=== PATIENT | male | born 2005 | race Caucasian/White ===

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

== ENCOUNTER 2025-02-20 18:37 | Observation (INO) | payer MEDICAID, SELFPAY ==
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
--- OUTSIDE RECORDS SUMMARY | 2021-08-22 01:24 | XMS_ITS | Continuity of Care Document ---
Author Organization [facility] Address [address] [id number][place] [address] Phone Care Team Providers Care Prop Setter Name Role Phone Care, Group Controller Unavailable Unavailable Allergies, Adverse Reactions, Alerts Substance [...] EACH ADD FLU VAC NO PRSV 4 SHEILA 6 Months+ 018 IMMUNIZATION ADMIN, EACH ADD [...] Diagnoses Date Provider Providers Copied on Encounter [facility], [id number]- [place], [place], [address], [place] tel:[phone] Family Medicine F1 No Information 2 Overlock Elastic Attacher. [address], [place], [address], [place]. tel:[phone] [facility], [id number] [id number]- [place], [place], [address], [place] tel:[phone] Pediatrics F1 Epistaxis 0 No Information OFFICE/OUTPA TIENT VISIT EST [facility], [id number]- [place], [place], [address], [place] tel:[phone] Pediatrics F1 elevated BP/noseblee ds (chief complaint)E ar pain (chief complaint) Right acute suppurative otitis mediaEpistaxi s 0 No Information [facility], [id number]- [facility], [place], [place], [address], [place] tel:[phone] Pediatrics F1 No Information 0 No Information [facility], [id number]- [facility], [place], [place], [address], [place] tel:[phone] Pediatrics F1 No Information 9 No Information [facility], [id number], [place], [place], [address], [place] tel:[phone] Pediatrics F1 No Information 9 No Information [facility], [id number] [facility], [place], [place], [address], [place] tel:[phone] Behavioral Health Integration Conduct disorder, unspecified 8 Zunilda Muñiz. [address], [place], [address], [place]. tel:[phone] OFFICE/OUTPA TIENT VISIT EST [facility], [id number], [place], [place], [address], [place] tel:[phone] Pediatrics F1 Med Check (chief complaint) ADHD 8 No Information [facility], [address] [id number] [facility], [place], [place], [address], [place] tel:[phone] Family Medicine F1 No Information 8 No Information [facility], [address] [id number] [facility], [place], [place], [address], [place] tel:[phone] Behavioral Health Integration Conduct disorder, unspecified 8 No Information [facility], [id number] [facility], [place], [place], [address], [place] tel:[phone] Behavioral Health Integration Other specified counseling 8 No Information OFFICE/OUTPA TIENT VISIT, EST [facility], [id number]- [facility], [place], [place], [address], [place] tel:[phone] Pediatrics F1 Follow Up of Concussion (chief complaint) Concussion with loss of consciousness , sequelaStrabi smus 8 No Information [facility], [address] [id number]- [facility], [place], [place], [address], [place] tel:[phone] Behavioral Health Integration Other specified counseling 8 No Information PREV VISIT, NEW, AGE 5-11 [facility], [address] [id number]- [facility], [place], [place], [address], [place] tel:[phone] Pediatrics F1 Well child (chief complaint)* 8-9 year well (chief complaint) Encntr for routine child health exam w/o abnormal findingsStrab ismusConduct disorder, unspecifiedOt her seasonal allergic rhinitisMild intermittent asthma, uncomplicated 8 No Information [facility], [address] [id number] [id number]- [facility], [place], [place], [address], [place] tel:[phone] Dental General LL Encounter for dental exam and cleaning w/o abnormal findings 8 No Information Family History Family Member Type Diagnosis Age At Onset Mother Problem (finding) Alive and well Father Problem (finding) Immunizations Vaccine Date Status Comments Flu Vaccine 3 years and older administere d Note: Parent/guardian advised to wait 10 mins while in clinic, pt had no notable adverse reactions. VIS:12/30/14 ; Source: New Immunization Record HPV (9-valent) administered Note: Parent/ guardian advised to wait 10 mins while in clinic, pt had no notable adverse reactions. VIS:04/26/16 ; Source: New Immunization Record HPV (9-valent) [...] Agency Payers Payer name Insurance type Covered republican ID Jen baires(s) M [employer] Plan CI [id number] M [employer] Comm Plan CI [id number] Social History Type Description Quantity Date Captured [...] Referrals: Referrals: Clinical Psychology - Pediatrics. Location: [facility]. Diagnostic testing Location: [facility]. Diagnostic testing Location: [facility]. Diagnostic testing Appointment date/timeframe: 09/12/2017 ordered Future Order: Lab Order PT/INR I n House ([id number]), Ordered on: Ordered Future Order: Lab Order PARTIAL THROMBOPLASTIN TIME, ACTIVATED ([id number]), Ordered on: Ordered Future Order: Lab Order von Will ramosd Comprehensive Panel ([id number]), Ordered on: Ordered History Of Present Illness [...] with pressure. Was seen at ED in [place] where labs were reportedly done (no records [...] dad when he was 4yo. Originally from [facility]. [facility] clinics, [facility] Moved here because mom got in trouble and needed to get away. Mom's was source of stress for Sher, they left him in [facility]. Has been here since Jan, mom is [...] is sleepy during the day. Goes to [employer]. Has friends. He is encouraged to eat [...] No Information Instructions Date Instruction Additional Infor mation Patient advised about exercise R elated to Right acute suppurative otitis media Dietary management e ducation, guidance, and counseling Related to Right acute suppurative otitis media Patient advised about exercise R elated to ADHD Dietary management e ducation, guidance, and counseling Related to ADHD Oral Health Discussed (11-14 yea rs) Related to Encntr for routine child health exam w/o abnormal findings Age appropriate safe ty discussed (11-14 years) Related to Encntr for routine child health exam w/o abnormal findings Age appropriate diet discussed (11-14 years) Related to Encntr for routine child health exam w/o abnormal findings Age appropriate anti cipatory guidance discussed (11-14 years) Related to Encntr for routine child health exam w/o abnormal findings Lifestyle education Related to D ental Examination Assessments Type Assessment Date No Information Patient Care Teams Name Effective Dates (start - stop) Status Members No Information
[2025-02-20 18:38] VITALS: BP 147/89; PULSE 93; RESP 17; TEMP 37; O2SAT 98; BMI 31.4
--- OUTSIDE RECORDS SUMMARY | 2025-02-20 18:49 | XMS_ITS | Encounter Summary ---
Author Organization 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 Nurses documentation noted. Review of systems, social history and chart review performed on health questionnaire. OBJECTIVE: HEENT: Head is normocephalic. Both TMs are erythematous and bulging. Posterior pharynx is erythematous. Clear drainage from nares. NECK: Supple. Thyroid is not palpated. No cervical lymphadenopathy is noted. HEART: Regular rate and rhythm with no murmur. LUNGS: Clear to auscultation bilaterally. ABDOMEN: Soft, rounded and nontender to palpation. Bowel sounds are present. EXTREMITIES: Without defect. ASSESSMENT: Upper respiratory infection, bilateral otitis media, pharyngitis. PLAN: Zithromax 100 mg in 5 ml, 1 tsp daily x5 days. Increase clear fluids. Tylenol and or Motrin for elevated temp and/or pain. Rondec DM syrup half tsp q.i.d. p.r.n. cough and congestion. Followup as needed. Hung Andrews RN, BULL WHEEL WORKER Jana Mancuso M.D. [facility] Electronically Signed by Hung Andrews RN 07/20/2007 12:26 , P, [id number] Document #: [id number] cc: ICAL OPERATOR documented in this encounter Plan of Treatment Not on file documented as of this encounter Visit Diagnoses Not on filedocumented in this encounter Additional Health Concerns Infection Onset Date Last Indicated Resolved Time R/O COVID-19 02/02/2020 02/02/2020 02/04/2020 2:17 AM CDT R/O COVID-19 02/22/2020 02/22/2020 02/24/2020 3:26 AM CDT documented as of this encounter Care Teams Machine Sewer Relationship Specialty Start Date End Date Homero Ordoñez MD PCP - General 06/01/07 documented as of this encounter
--- OUTSIDE RECORDS SUMMARY | 2025-02-20 18:49 | XMS_ITS | Encounter Summary ---
Author Organization [facility] Address [address] [place] [address] Care Team Providers Care Ballet Dancer Name Role Phone Homero Ordoñez MD Primary Care Provider Encounter Details Date Type Department Care Team (Late st Contact Info) Description 07/22/2007 Outpatient Historical [facility] Medicine [place] [address] [phone] Hung Andrews, NANCY [address] [place] [address] Social History Tobacco Use Types Packs/Day Years Used Date Smoking Tobacco: Never Assessed Sex and Gender Information Value Date Recorded Sex Assigned at Not on file 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 He has been diagnosed with eczema and has that at home. Nurses documentation noted. Review of systems, social history and chart review performed on health questionnaire. OBJECTIVE: HEENT: Head is normocephalic. TMs are erythematous bilaterally. Nasal passages are patent. Intraoral exam is pink and moist. Posterior oropharynx is within normal limits. NECK: Supple. Thyroid is not palpated. No cervical lymphadenopathy is noted. HEART: Regular rate and rhythm with no murmur. LUNGS: He has some wheezing in the upper lobes. He has a nebulizer at home but has not used it in the last week or two. Both parents smoke in the home. No retractions are noted. Lung sounds are clearother than the wheezes. ABDOMEN: Soft, rounded and nontender to palpation. Bowel sounds are present. EXTREMITIES: Without defect. ASSESSMENT: 1. Bilateral otitis media. 2. Upper respiratory infection. 3. Viral syndrome. PLAN: Continue the nebulizer treatments at home. No smoking in home. Tylenol and/or Motrin for elevated temperature and/or pain for age and weight is discussed. Zithromax 100 mg in 5 mL, 4 mL on day one and 2 mL on days two through five. Increase clear fluids and follow back up as needed. Hung Andrews RN, BRANCH MAKER Jana Mancuso M.D. [facility] Electronically Signed by Hung Andrews RN 08/18/2007 11:40 P, A, 550 Document #: [id number] cc: documented in this encounter Plan of Treatment Not on file documented as of this encounter Visit Diagnoses Not on filedocumented in this encounter Additional Health Concerns Infection Onset Date Last Indicated Resolved Time R/O COVID-19 02/02/2020 02/02/2020 02/04/2020 2:17 AM CDT R/O COVID-19 02/22/2020 02/22/2020 02/24/2020 3:26 AM CDT documented as of this encounter Care Teams Ballet Dancer Relationship Specialty Start Date End Date Hmoero Ordoñez MD PCP - General 06/01/07 documented as of this encounter
--- OUTSIDE RECORDS SUMMARY | 2025-02-20 18:49 | XMS_ITS | Encounter Summary ---
Author Organization [facility] Address [address] [place] [address] Care Team Providers Care Die Maker Trim Name Role Phone Homero Ordoñez MD Primary Care Provider Encounter Details Date Type Department Care Team (Latest Contact Info) Description 2005 Outpatient Historical [facility] Medicine [place] [address] [phone] Homero Ordoñez MD [address] [place] [phone] Routine Child Health Exam (Primary Dx) Social History Tobacco Use Types Packs/Day Years Used Date Smoking Tobacco: Never Assessed Sex and Gender Information Value Date Recorded Sex Assigned at Not on file 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 Gender Identity Not on file Sexual Orientation Not on file documented as of this encounter Plan of Treatment Not on file documented as of this encounter Visit Diagnoses Diagnosis Routine child health exam- Primary Routine infant or child health check documented in this encounter Additional Health Concerns Infection Onset Date Last Indicated Resolved Time R/O COVID-19 02/02/2020 02/02/2020 02/04/2020 2:17 AM CDT R/O COVID-19 02/22/2020 02/22/2020 02/24/2020 3:26 AM CDT documented as of this encounter Care Teams Die Maker Trim Relationship Specialty Start Date End Date Homero Ordoñez MD PCP - General 1/7/08 documented as of this encounter
--- OUTSIDE RECORDS SUMMARY | 2025-02-20 18:49 | XMS_ITS | Encounter Summary ---
Author Organization [facility] Address [address] [place] [address] Care Team Providers Care Mica Washer Gluer Name Role Phone Homero Ordoñez MD Primary Care Provider [phone] Encounter Details Date Type Department Care Team (Latest Contact Info) Description 07/15/2006 Outpatient Historical [facility] Medicine [place] [address] [phone] Homero Ordoñez MD [address] [place] [phone] Unspecified Otitis Media (Primary Dx) Social History Tobacco Use Types Packs/Day Years Used Date Smoking Tobacco: Never Assessed Sex and Gender Information Value Date Recorded Sex Assigned at Not on file 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 Gender Identity Not on file Sexual Orientation Not on file documented as of this encounter Plan of Treatment Not on file documented as of this encounter Visit Diagnoses Diagnosis Unspecified otitis media- Primary documented in this encounter Additional Health Concerns Infection Onset Date Last Indicated Resolved Time R/O COVID-19 02/02/2020 02/02/2020 02/04/2020 2:17 AM CDT R/O COVID-19 02/22/2020 02/22/2020 02/24/2020 3:26 AM CDT documented as of this encounter Care Teams Mica Washer Gluer Relationship Specialty Start Date End Date Homero Ordoñez MD PCP - General 06/01/07 documented as of this encounter
--- OUTSIDE RECORDS SUMMARY | 2025-02-20 18:49 | XMS_ITS | Encounter Summary ---
Author Organization [facility] Address [address] [place] [address] Care Team Providers Care Channel Marketing Manager Name Role Phone Homero Ordoñez MD Primary Care Provider Encounter Details Date Type Department Care Team (Latest Contact Info) Description 2005 Outpatient Historical [facility] Medicine [place] [address] [phone] Homero Ordoñez MD [address] [place] [phone] Routine Child Health Exam (Primary Dx) Social History Tobacco Use Types Packs/Day Years Used Date Smoking Tobacco: Never Assessed Sex and Gender Information Value Date Recorded Sex Assigned at Not on file 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
--- OUTSIDE RECORDS SUMMARY | 2025-02-20 18:49 | XMS_ITS | Encounter Summary ---
Author Organization [facility] Address [address] [place] [address] Care Team Providers Care Electrical Test Engineer Name Role Phone Homero Ordoñez MD Primary Care Provider Encounter Details Date Type Department Care Team (Latest Contact Info) Description 11/28/2006 Outpatient Historical [facility] Medicine [address] [phone] Hung Andrews, WET PROCESS HEAD MILLER [address] [place] [address] Unspecified Otitis Media (Primary Dx); Acute Upper Respiratory Infections of Unspecified Site; Allergic Rhinitis, Cause Unspecified; Unspecified Constipation Social History Tobacco Use Types Packs/Day Years Used Date Smoking Tobacco: Never Assessed Sex and Gender Information Value Date Recorded Sex Assigned at Not on file 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 Gender Identity Not on file Sexual Orientation Not on file documented as of this encounter Plan of Treatment Not on file documented as of this encounter Visit Diagnoses Diagnosis Unspecified otitis media- Primary Acute upper respiratory infections of unspecified site Allergic rhinitis, cause unspecified Unspecified constipation documented in this encounter Additional Health Concerns Infection Onset Date Last Indicated Resolved Time R/O COVID-19 02/02/2020 02/02/2020 02/04/2020 2:17 AM CDT R/O COVID-19 02/22/2020 02/22/2020 02/24/2020 3:26 AM CDT documented as of this encounter Care Teams Electrical Test Engineer Relationship Specialty Start Date End Date Homero Ordoñez MD PCP - General 06/01/07 documented as of this encounter
--- OUTSIDE RECORDS SUMMARY | 2025-02-20 18:49 | XMS_ITS | Encounter Summary ---
Author Organization [facility] Address [address] [place] [address] Care Team Providers Care Rn Anesthetist Name Role Phone Homero Ordoñez MD Primary Care Provider Encounter Details Date Type Department Care Team (Latest Contact Info) Description 02/25/2007 Outpatient Historical [facility] Medicine [address] [phone] Hung Andrews, DRAGLINE OILER [address] [place] [address] Allergic Rhinitis, Cause Unspecified (Primary Dx) Social History Tobacco Use Types Packs/Day Years Used Date Smoking Tobacco: Never Assessed Sex and Gender Information Value Date Recorded Sex Assigned at Not on file 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 Gender Identity Not on file Sexual Orientation Not on file documented as of this encounter Plan of Treatment Not on file documented as of this encounter Visit Diagnoses Diagnosis Allergic rhinitis, cause unspecified- Primary documented in this encounter Additional Health Concerns Infection Onset Date Last Indicated Resolved Time R/O COVID-19 02/02/2020 02/02/2020 02/04/2020 2:17 AM CDT R/O COVID-19 02/22/2020 02/22/2020 02/24/2020 3:26 AM CDT documented as of this encounter Care Teams Rn Anesthetist Relationship Specialty Start Date End Date Homero Ordoñez MD PCP - General 06/01/07 documented as of this encounter
--- OUTSIDE RECORDS SUMMARY | 2025-02-20 18:50 | XMS_ITS | Clinical Summary ---
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
--- OUTSIDE RECORDS SUMMARY | 2025-02-20 18:50 | XMS_ITS | Encounter Summary ---
Author Organization [facility] Address [address] [place] [address] Care Team Providers Care Count Team Clerk Name Role Phone Homero Ordoñez MD Primary Care Provider Encounter Details Date Type Department Care Team (Latest Contact Info) Description 11/03/2006 Outpatient Historical [facility] Medicine [place] [address] [phone] Purvi Ortiz, [facility] [address] [phone] Rash and Other Nonspecific Skin Eruption (Primary Dx); Acute Pharyngitis; Unspecified Viral Exanthem Social History Tobacco Use Types Packs/Day Years Used Date Smoking Tobacco: Never Assessed Sex and Gender Information Value Date Recorded Sex Assigned at Not on file 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 Gender Identity Not on file Sexual Orientation Not on file documented as of this encounter Plan of Treatment Not on file documented as of this encounter Visit Diagnoses Diagnosis Rash and other nonspecific skin eruption- Primary Acute pharyngitis Viral exanthem, unspecified documented in this encounter Additional Health Concerns Infection Onset Date Last Indicated Resolved Time R/O COVID-19 02/02/2020 02/02/2020 02/04/2020 2:17 AM CDT R/O COVID-19 02/22/2020 02/22/2020 02/24/2020 3:26 AM CDT documented as of this encounter Care Teams Count Team Clerk Relationship Specialty Start Date End Date Homero Ordoñez MD PCP - General 06/01/07 documented as of this encounter
--- OUTSIDE RECORDS SUMMARY | 2025-02-20 18:50 | XMS_ITS | Clinical Summary ---
Author Organization [facility] Address [address] 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 Gender Identity Not on file Sexual Orientation Not on file Last Filed Vital Signs Vital Sign Reading Time Taken Comments Blood Pressure 118/80 05/12/2012 2:19 PM TELEVISION NEWS VIDEO EDITOR Pulse 88 05/12/2012 2:19 PM TELEVISION NEWS VIDEO EDITOR Temperature 36.4 C (97.6 F) 05/12/2012 2:19 PM TELEVISION NEWS VIDEO EDITOR Respiratory Rate 20 05/12/2012 2:19 PM TELEVISION NEWS VIDEO EDITOR Oxygen Saturation - - Inhaled Oxygen Concentration - - Weight 21.4 kg (47 lb 3.2 oz) 05/12/2012 2:19 PM TELEVISION NEWS VIDEO EDITOR Height 114.3 cm (3' 9 ) 05/12/2012 2:19 PM TELEVISION NEWS VIDEO EDITOR Body Mass Index 16.39 05/12/2012 2:19 PM TELEVISION NEWS VIDEO EDITOR Body Mass Index Percentile 72.77% 05/12/2012 2:1 9 PM TELEVISION NEWS VIDEO EDITOR Growth Chart: CDC (Boys, 2-2 0 Years) Plan of Treatment Health Maintenance Due Date Last Done Comments CHLAMYDIA SCREENING (ANNUAL) 11-24 YEARS 2016 HPV VACCINES (1 - Male 3-dose series) 2020 DTAP/TDAP/TD VACCINES (1 - Tdap) 2024 HEPATITIS B VACCINES (1 of 3 - 19+ 3-dose series) 08/24 INFLUENZA VACCINE (#1) 2024 Insurance [facility] Care Teams Tire Care Manager Relationship Specialty Start Date End Date Homero Ordoñez MD PCP - General 06/01/07
--- OUTSIDE RECORDS SUMMARY | 2025-02-20 18:50 | XMS_ITS | Encounter Summary ---
Author Organization [facility] Address [address] [place] [address] Care Team Providers Care National Investigative Producer Name Role Phone Homero Ordoñez MD Primary Care Provider [phone] Encounter Details Date Type Department Care Team (Latest Contact Info) Description 05/08/2006 Outpatient Historical [facility] Medicine [place] [address] [phone] Homero Ordoñez MD [address] [place] [phone] Nonsuppurative Otitis Media, not Specified as Acute or Chronic (Primary Dx) Social History Tobacco Use Types Packs/Day Years Used Date Smoking Tobacco: Never Assessed Sex and Gender Information Value Date Recorded Sex Assigned at Not on file 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 Gender Identity Not on file Sexual Orientation Not on file documented as of this encounter Plan of Treatment Not on file documented as of this encounter Visit Diagnoses Diagnosis Nonsuppurative otitis media, not specified as acute or chronic- Primary documented in this encounter Additional Health Concerns Infection Onset Date Last Indicated Resolved Time R/O COVID-19 02/02/2020 02/02/2020 02/04/2020 2:17 AM CDT R/O COVID-19 02/22/2020 02/22/2020 02/24/2020 3:26 AM CDT documented as of this encounter Care Teams National Investigative Producer Relationship Specialty Start Date End Date Homero Ordoñez MD PCP - General 06/01/07 documented as of this encounter
[2025-02-20 18:59] LABS: Hematocrit 45.1 % (37-53); Hemoglobin 15.90 g/dL (13.2-15.6); Mean Corpuscular HGB Conc 35.3 g/dL (30-55); Mean Corpuscular Hemoglobin 29.9 pg (27-33); Mean Corpuscular Volume 84.8 fl (82-101); Nucleated Red Blood Cells % 0 %; Platelet Count 325 10^3/cmm (157-399); Red Blood Count 5.32 10^6/uL (3.85-5.65); White Blood Count 9.50 10^3/uL (4.5-13.0)
[2025-02-20 19:11] LABS: PCP Screen Urine Negative (Negative)
[2025-02-20 19:18] LABS: Alanine Aminotransferase 27 U/L (0-41); Albumin Level 4.8 g/dL (3.5-5.2); Alkaline Phosphatase 99 U/L (40-130); Anion Gap 13.8 (5-19); Aspartate Amino Transferase 15 U/L (0-40); Blood Urea Nitrogen 10 mg/dL (6-20); Calcium 9.4 mg/dL (8.5-10.5); Carbon Dioxide 24 mmol/L (22-29); Chloride 103 mmol/L (98-107); Creatinine Clr Calc Pharmacy 160.5924; Globulin 2.8 g/dL (1.3-4.6); Glucose 91 mg/dL (65-115); Osmolality Calculated 283 mOsm/kg (285-295); Potassium 3.8 mmol/L (3.5-5.1); Sodium 137 mmol/L (136-145); Total Protein 7.6 g/dL (6.6-8.7)
--- NOTE | 2025-02-20 19:28 | W.ED.PSYCHS ---
Documented by User: LEONA Sommers 02/20/25 19:35 HPI - Psych General: Chief Complaint: Psychiatric Symptoms Stated Complaint: mhe Time Seen by Provider: 02/20/25 18:39 Source: patient Mode of arrival: ambulatory Limitations: no limitations History of Present Illness: Patient is a 19-year-old male with a past medical history of anxiety, depression, and bipolar disorder who presents the emergency department by ambulance due to suicidal ideations. He states that he has been having thoughts for the last couple of years, but it has gotten worse recently as he has been dealing with a lot of medical issues with his young child. States that they are currently in the hospital, he was drinking tonight and he had thoughts of wanting to drink himself until he was . States he has been medications for anxiety and depression as well as bipolar disorder, but has since stopped taking these. No homicidal ideations or hallucinations reported of any kind, he states that he is voluntarily wanting to come see her psychiatrist to discuss medications. MD complaint: suicidal ideation and feels depressed Onset (ago): year(s) Duration: constant and getting worse History of same: Yes Context: recent alcohol abuse Associated symptoms: Reports depression and suicidal ideation; Deny auditory hallucinations, visual hallucinations or homicidal ideation Related Data Home Medications ?Medication ?Instructions ?Recorded ?Confirmed No Known Home Medications 02/20/25 02/20/25 Allergies Allergy/AdvReac Type Severity Reaction Status Date / Time Penicillins Allergy ALGY-Hives Verified 12/31/22 08:12 Review of Systems General: Reports: 10 or more systems reviewed and unremarkable except in HPI and below Const: Denies: fever(s), chills or fatigue Eyes: Denies: change in vision ENMT: Denies: throat pain, ear or mastoid pain or nasal discharge Card: Denies: chest pain, palpitations, swelling of feet/ankles or lightheadedness Resp: Denies: dyspnea, productive cough or wheezing GI: Denies: abdominal pain, nausea, vomiting, diarrhea or constipation : Denies: flank pain, difficulty urinating, dysuria or urinary frequency Musc: Denies: neck pain, back pain or joint pain Skin/Breast: Denies: rash Neuro: Denies: headache(s), numbness in extremities or weakness in extremities Psych: Reports: anxiety, depression and suicidal ideation; Denies: visual hallucinations, auditory hallucinations, tactile hallucinations or homicidal ideation PFSH ED PFSH: Medical History Acute appendicitis Depression Anxiety Surgical History Status post laparoscopic appendectomy Social History Smoking and tobacco/nicotine status: never used tobacco/nicotine Alcohol intake: never Physical Exam Const: COMMON NORMALS: no acute distress, patient oriented x3 and no limitations GENERAL APPEARANCE: cooperative, comfortable and well developed ORIENTATION/CONSCIOUSNESS: Yes awake, Yes oriented to person, Yes oriented to place and Yes oriented to time HENMT: COMMON NORMALS: normocephalic, atraumatic and hearing grossly normal bilaterally HEAD & SCALP: normocephalic and atraumatic Eye: COMMON NORMALS: Equal, round and reactive pupils present, EOMs intact bilaterally and conjunctivae normal CONJUNCTIVA: Yes conjunctivae normal PUPIL: Yes Equal, round and reactive pupils present Neck/C-Spine: COMMON NORMALS: full ROM, supple and no JVD Resp: COMMON NORMALS: normal respiratory effort, No retractions, No use of accessory muscles and clear to auscultation bilaterally AUSCULTATION: clear to auscultation bilaterally Cardio: COMMON NORMALS: no JVD, regular rate, regular rhythm, No clicks present (Cardio), No murmurs present (Cardio) and No rub (Cardio) RATE: regular rate RHYTHM: regular rhythm Extremity: COMMON NORMALS: normal to inspection, full ROM and capillary refill normal Neuro: COMMON NORMALS: patient oriented x3, moves all extremities, no focal motor deficits and no sensory deficits noted SENSORIUM/ORIENTATION: Yes oriented to person, Yes oriented to place and Yes oriented to time Psych: COMMON NORMALS: mental status grossly normal and Normal thought process present APPEARANCE: Yes grossly normal ATTITUDE: Yes calm ACTIVITY/MOTOR BEHAVIOR: Yes appropriate eye contact THOUGHT PROCESS: Normal thought process present THOUGHT CONTENT: Yes Suicidality present, No Homicidality present and No Hallucination(s) present Skin: COMMON NORMALS: no rashes or lesions noted GENERAL SKIN EXAM: no rashes or lesions noted Course Vital Signs: Vital signs: Vital Signs Temperature 98.7 F 02/20/25 21:08 Pulse Rate 66 02/20/25 21:08 Respiratory Rate 16 02/20/25 21:08 Blood Pressure 136/81 02/20/25 21:08 Pulse Oximetry 96 02/20/25 21:08 Oxygen Delivery Me thod Room Air 02/20/25 21:08 MDM - Psych Medical Decision Making Patient cleared medically, will be excepted to the neuropsychiatric unit by Dr. Aguilar for further evaluation. Dr. Uribe put in admit orders. Lab Data 02/20/25 18:53 02/20/25 18:53 Laboratory Results WBC 9.50 10^3/uL (4.5-13.0) 02/20/25 18:53 RBC 5.32 10^6/uL (3.85-5.65) 02/20/25 18:53 Hgb 15.90 g/dL (13.2-15.6) H 02/20/25 18:53 Hct 45.1 % (37-53) 02/20/25 18:53 MCV 84.8 fl (82-101) 02/20/25 18:53 MCH 29.9 pg (27-33) 02/20/25 18:53 MCHC 35.3 g/dL (30-55) 02/20/25 18:53 RDW 12.1 % (12.1-15.1) 02/20/25 18:53 Plt Count 325 10^3/cmm (157-399) 02/20/25 18:53 MPV 9.7 fL (7.4-10.4) 02/20/25 18:53 Neut % (Auto) 52.2 % 02/20/25 18:53 Lymph % (Auto) 34.3 % 02/20/25 18:53 [place] % (Auto) 8.1 % 02/20/25 18:53 Eos % (Auto) 4.1 % 02/20/25 18:53 Baso % (Auto) 1.1 % 02/20/25 18:53 Neut # (Auto) 4.96 10^3/uL (1.8-8.0) 02/20/25 18:53 Lymph # (Auto) 3.3 10^3/uL (1.5-6.5) 02/20/25 18:53 [place] # (Auto) 0.8 10^3/uL (0.2-0.9) 02/20/25 18:53 Eos # (Auto) 0.4 10^3/uL (0.0-0.8) 02/20/25 18:53 Baso # (Auto) 0.1 10^3/uL (0.0-0.1) 02/20/25 18:53 Nucleated RBC % (auto) 0 % 02/20/25 18:53 Nucleated RBCs # 0.0 /100WBC 02/20/25 18:53 Sodium 137 mmol/L (136-145) 02/20/25 18:53 Potassium 3.8 mmol/L (3.5-5.1) 02/20/25 18:53 Chloride 103 mmol/L (98-107) 02/20/25 18:53 Carbon Dioxide 24 mmol/L (22-29) 02/20/25 18:53 Anion Gap 13.8 (5-19) 02/20/25 18:53 BUN 10 mg/dL (6-20) 02/20/25 18:53 Creatinine 0.9 mg/dL (0.7-1.2) 02/20/25 18:53 GFR Calculation 108.7 mL/min (90-130) 02/20/25 18:53 Glucose 91 mg/dL (65-115) 02/20/25 18:53 Calculated Osmolality 283 mOsm/kg (285-295) L 02/20/25 18:53 Calcium 9.4 mg/dL (8.5-10.5) 02/20/25 18:53 Total Bilirubin 0.4 mg/dL (0.15-1.2) 02/20/25 18:53 AST 15 U/L (0-40) 02/20/25 18:53 ALT 27 U/L (0-41) 02/20/25 18:53 Alkaline Phosphatase 99 U/L (40-130) 02/20/25 18:53 Total Protein 7.6 g/dL (6.6-8.7) 02/20/25 18:53 Albumin 4.8 g/dL (3.5-5.2) 02/20/25 18:53 Globulin 2.8 g/dL (1.3-4.6) 02/20/25 18:53 Salicylates < 0.3 mg/dL (3-10) L 02/20/25 18:53 Urine Opiates Screen Negative ng/mL (Negative) 02/20/25 18:47 Acetaminophen < 5.0 ug/mL (10-30) L 02/20/25 18:53 Ur Barbiturates Screen Negative ng/mL (Negative) 02/20/25 18:47 Ur Phencyclidine Scrn Negative ng/mL (Negative) 02/20/25 18:47 Ur Amphetamines Screen Negative ng/mL (Negative) 02/20/25 18:47 U Benzodiazepines Scrn Negative ng/mL (Negative) 02/20/25 18:47 Urine Cocaine Screen Negative ng/mL (Negative) 02/20/25 18:47 U Marijuana (THC) Screen Negative ng/mL (Negative) 02/20/25 18:47 Ethyl Alcohol < 10 mg/dL (0-10) 02/20/25 18:53 No radiology studies performed this visit Discharge Plan Discharge Patient Disposition: Admitted As Inpatient Admit Provider: Bud Kaiser Clinical Impression: Suicidal ideation Condition: Stable Coding Level of Care Code ED Opthalmic Tech for Chg Fwd Documented by User: Benja Uribe DO 02/20/25 23:58 HPI - Psych General: Chief Complaint: Psychiatric Symptoms Stated Complaint: mhe Time Seen by Provider: 02/20/25 18:39 Related Data Home Medications ?Medication ?Instructions ?Recorded ?Confirmed No Known Home Medications 02/20/25 02/20/25 Allergies Allergy/AdvReac Type Severity Reaction Status Date / Time Penicillins Allergy ALGY-Hives Verified 12/31/22 08:12 [facility] ED PFSH: Medical History Acute appendicitis Depression Anxiety Surgical History Status post laparoscopic appendectomy Social History Smoking and tobacco/nicotine status: never used tobacco/nicotine Alcohol intake: never Course Vital Signs: Vital signs: Vital Signs Temperature 98.7 F 02/20/25 21:08 Pulse Rate 66 02/20/25 21:08 Respiratory Rate 16 02/20/25 21:08 Blood Pressure 136/81 02/20/25 21:08 Pulse Oximetry 96 02/20/25 21:08 Oxygen Delivery Me thod Room Air 02/20/25 21:08 MDM - Psych Medical Decision Making Patient cleared medically, will be excepted to the neuropsychiatric unit by Dr. Aguilar for further evaluation. Dr. Uribe put in admit orders. Patient was originally seen by Mr. Albert, JASIEL. I agree with his history, evaluation, and treatment. Lab Data 02/20/25 18:53 02/20/25 18:53 Laboratory Results WBC 9.50 10^3/uL (4.5-13.0) 02/20/25 18:53 RBC 5.32 10^6/uL (3.85-5.65) 02/20/25 18:53 Hgb 15.90 g/dL (13.2-15.6) H 02/20/25 18:53 Hct 45.1 % (37-53) 02/20/25 18:53 MCV 84.8 fl (82-101) 02/20/25 18:53 MCH 29.9 pg (27-33) 02/20/25 18:53 MCHC 35.3 g/dL (30-55) 02/20/25 18:53 RDW 12.1 % (12.1-15.1) 02/20/25 18:53 Plt Count 325 10^3/cmm (157-399) 02/20/25 18:53 MPV 9.7 fL (7.4-10.4) 02/20/25 18:53 Neut % (Auto) 52.2 % 02/20/25 18:53 Lymph % (Auto) 34.3 % 02/20/25 18:53 [place] % (Auto) 8.1 % 02/20/25 18:53 Eos % (Auto) 4.1 % 02/20/25 18:53 Baso % (Auto) 1.1 % 02/20/25 18:53 Neut # (Auto) 4.96 10^3/uL (1.8-8.0) 02/20/25 18:53 Lymph # (Auto) 3.3 10^3/uL (1.5-6.5) 02/20/25 18:53 [place] # (Auto) 0.8 10^3/uL (0.2-0.9) 02/20/25 18:53 Eos # (Auto) 0.4 10^3/uL (0.0-0.8) 02/20/25 18:53 Baso # (Auto) 0.1 10^3/uL (0.0-0.1) 02/20/25 18:53 Nucleated RBC % (auto) 0 % 02/20/25 18:53 Nucleated RBCs # 0.0 /100WBC 02/20/25 18:53 Sodium 137 mmol/L (136-145) 02/20/25 18:53 Potassium 3.8 mmol/L (3.5-5.1) 02/20/25 18:53 Chloride 103 mmol/L (98-107) 02/20/25 18:53 Carbon Dioxide 24 mmol/L (22-29) 02/20/25 18:53 Anion Gap 13.8 (5-19) 02/20/25 18:53 BUN 10 mg/dL (6-20) 02/20/25 18:53 Creatinine 0.9 mg/dL (0.7-1.2) 02/20/25 18:53 GFR Calculation 108.7 mL/min (90-130) 02/20/25 18:53 Glucose 91 mg/dL (65-115) 02/20/25 18:53 Calculated Osmolality 283 mOsm/kg (285-295) L 02/20/25 18:53 Calcium 9.4 mg/dL (8.5-10.5) 02/20/25 18:53 Total Bilirubin 0.4 mg/dL (0.15-1.2) 02/20/25 18:53 AST 15 U/L (0-40) 02/20/25 18:53 ALT 27 U/L (0-41) 02/20/25 18:53 Alkaline Phosphatase 99 U/L (40-130) 02/20/25 18:53 Total Protein 7.6 g/dL (6.6-8.7) 02/20/25 18:53 Albumin 4.8 g/dL (3.5-5.2) 02/20/25 18:53 Globulin 2.8 g/dL (1.3-4.6) 02/20/25 18:53 Salicylates < 0.3 mg/dL (3-10) L 02/20/25 18:53 Urine Opiates Screen Negative ng/mL (Negative) 02/20/25 18:47 Acetaminophen < 5.0 ug/mL (10-30) L 02/20/25 18:53 Ur Barbiturates Screen Negative ng/mL (Negative) 02/20/25 18:47 Ur Phencyclidine Scrn Negative ng/mL (Negative) 02/20/25 18:47 Ur Amphetamines Screen Negative ng/mL (Negative) 02/20/25 18:47 U Benzodiazepines Scrn Negative ng/mL (Negative) 02/20/25 18:47 Urine Cocaine Screen Negative ng/mL (Negative) 02/20/25 18:47 U Marijuana (THC) Screen Negative ng/mL (Negative) 02/20/25 18:47 Ethyl Alcohol < 10 mg/dL (0-10) 02/20/25 18:53 Discharge Plan Discharge Patient Disposition: Admitted As Inpatient Admit Provider: Bud Kaiser Clinical Impression: Suicidal ideation Condition: Stable Coding Level of Care Code ED Opthalmic Tech for Monserrat Calderon
[2025-02-20 19:36] LABS: Acetaminophen < 5.0 ug/mL (10-30); Alcohol Level < 10 mg/dL (0-10); Salicylate < 0.3 mg/dL (3-10)
[2025-02-20 20:09] VITALS: BP 142/93; PULSE 97; O2SAT 98
[2025-02-20 20:23] VITALS: BP 136/81; PULSE 66; RESP 16; TEMP 37.1; O2SAT 96
[2025-02-20 21:08] VITALS: BP 136/81; PULSE 66; RESP 16; TEMP 37.1; O2SAT 96
[2025-02-21 06:00] VITALS: BP 112/62; PULSE 67; RESP 17; TEMP 37; O2SAT 98
--- NOTE | 2025-02-21 12:05 | P.NPUHP_ITS ---
Providers/Chief Complaint 2 Admitting Physician: uBd Kaiser MD Primary Care Provider: Shamika Jarrett NP Chief Complaint: mhe HPI NPU History of Present Illness Sher Lopez is a 19 year old male with no prior history of inpatient psychiatric hospitalization who arrived to the emergency department accompanied by ambulance after he had reported having suicidal ideation. The patient was admitted to the neuropsychiatric unit voluntarily for further evaluation and treatment. He had reported that he had been out of his hydroxyzine for several weeks and reported that his anxiety and depression were getting worse. He stated that he recently had ongoing stressors as his son was scheduled to have another surgery in [place] and reported that his son has had over 70 surgeries. The patient reports that he struggles with being able to control his worries. He reports that he often feels like he worries too much. He denied having any problems with his sleep or appetite. He denied having any suicidal thoughts and no history of suicide attempts. He does report that he has depression quite frequently. He had reported some loss of interest. He denied any increased tearfulness. He denied any feelings of hopelessness. He reports that he struggles with sustaining attention and has difficulties with staying on task for long periods of time. He had previously been treated for ADHD and depression as an adolescent. He reports no history of brigid. He denied any history of psychosis. He reports that he does often feel affected by hearing bad news about his 2 year old son. The patient reported no difficulties with social anxiety disorder. He denied any symptoms suggestive of obsessive- compulsive disorder. He had wished that he could adjust his medications and stated that he had not seen a psychiatrist in several years. He denied any significant alcohol or drug use other than occasional use of marijuana. His urine drug screen was negative on admission. Inpatient psychiatric history: None Outpatient psychiatric history: He had received some outpatient treatment through [facility] in 2020 as an adolescent with a previous diagnosis of major depressive disorder and ADHD. Substance abuse history: none reported, other than occasional alcohol and thc use. Medical history: None Surgical history: Appendectomy Allergies: Penicillin Family psychiatric history: anxiety-mother Legal history: none Medications: none Social History: The patient had reported a history of having been diagnosed with a learning disability and required special education in school. He had ultimately dropped out of school in the ninth grade but completed online schooling and earned his diploma online. He had reported no prior history of sexual physical or emotional abuse. He was raised by his biological mother as his father had 15 years ago. He has a half brother and 2 half sisters. He has been for 2 years and has an [id number] child. He lives in [place] with his son and his who is currently . He reports that he is currently unemployed. Meds NPU Home Medications ?Medication ?Instructions ?Recorded ?Confirmed ?Last Taken ?Type No Known Home Medications 02/20/2501/25 Unknown History Allergies Allergy/AdvReac Type Severity Reaction Status Date / Time Penicillins Allergy ALGY-Hives Verified 12/31/22 08:12 PFSH NPU 2 PFSH: Medical History (Updated 02/21/25 @ 13:15 by Bud Kaiser MD) Acute appendicitis Depression Anxiety Surgical History Status post laparoscopic appendectomy Social History Smoking and tobacco/nicotine status: never used tobacco/nicotine Alcohol intake: never Mental Status Exam 2 MSE Comments: Is a casually dressed 19-year-old male average height and appeared healthy weight who appeared in no acute distress. His gait appeared within normal limits. His hygiene was fair. There was no evidence of any abnormal involuntary motor movements, tics, or tremors appreciated. There was evidence of mild psychomotor retardation. His speech was normal in regards to rate and rhythm with a slight impediment appreciated. His mood was described as anxious. His affect appeared slightly restricted in range and mood congruent. His thought process was linear, logical, and goal-directed. His thought content revealed no suicidal or homicidal ideation. There was no evidence of any delusional thinking. He did not appear to be responding to internal stimuli. His attention span appeared to be poor. He was alert and oriented to person, place, time, and situation. His insight appeared fair. His judgment appeared adequate. His impulse control appeared fair. Vitals/I&O/Wt Last Vital Signs Temp 98.6 F 02/21/25 06:00 Pulse 67 02/21/25 06:00 Resp 17 02/21/25 06:00 BP 112/62 02/21/25 06:00 Pulse Ox 98 02/21/25 06:00 O2 Del Method Room Air 02/21/25 06:00 Weight last 48 hrs Weight 102.058 kg Data NPU 02/20/25 18:53 02/20/25 18:53 A&P Assessment and plan 1. TAMI (generalized anxiety disorder): 2. Major depressive disorder, recurrent, unspecified: 3. History of ADHD: Plan: 19-year-old male reported prior history of ADHD currently endorsing worsening anxiety and depression requesting a medication to help with managing his depression and anxiety. #1.? Engage patient in individual milieu and group therapy. #2?? Recommend sober living treatment at the highest level of care to which the patient is willing to commit #3??? Start Lexapro 10mg daily, referral for psychotherapy. ? #4?? TO-15 minute checks? #5?? Will attempt to gather collateral information PDMP PDMP Reviewed: Not Reviewed Attestations NPU 2 Medical Necessity Statement*: Inpatient hospitalization is medically necessary and deemed to ?be ?the clinically appropriate intervention ?at this time.? We will monitor/initiate medications and make changes as indicated.? The patient will be hospitalized for at least two midnights. The patient?s likely length of stay 1-2 days. Coding Level of Care Code Acute Code for Chg Fwd Diagnoses TAMI (generalized anxiety disorder) F41.1 Major depressive disorder, recurrent, unspecified F33.9 History of ADHD Z86.59
--- NOTE | 2025-02-21 13:17 | P.NPUDS_ITS ---
Diagnoses at Discharge Discharge Diagnosis 1. TAMI (generalized anxiety disorder): 2. Major depressive disorder, recurrent, unspecified: 3. History of ADHD: Reason for Visit Reason for Visit: mhe Brief History: History of Present Illness Sher Lopez is a 19 year old male with no prior history of inpatient psychiatric hospitalization who arrived to the emergency department accompanied by ambulance after he had reported having suicidal ideation. The patient was admitted to the neuropsychiatric unit voluntarily for further evaluation and treatment. He had reported that he had been out of his hydroxyzine for several weeks and reported that his anxiety and depression were getting worse. He stated that he recently had ongoing stressors as his son was scheduled to have another surgery in [place] and reported that his son has had over 70 surgeries. The patient reports that he struggles with being able to control his worries. He reports that he often feels like he worries too much. He denied having any problems with his sleep or appetite. He denied having any suicidal thoughts and no history of suicide attempts. He does report that he has depression quite frequently. He had reported some loss of interest. He denied any increased tearfulness. He denied any feelings of hopelessness. He reports that he struggles with sustaining attention and has difficulties with staying on task for long periods of time. He had previously been treated for ADHD and depression as an adolescent. He reports no history of brigid. He denied any history of psychosis. He reports that he does often feel affected by hearing bad news about his 2 year old son. The patient reported no difficulties with social anxiety disorder. He denied any symptoms suggestive of obsessive- compulsive disorder. He had wished that he could adjust his medications and stated that he had not seen a psychiatrist in several years. He denied any significant alcohol or drug use other than occasional use of marijuana. His urine drug screen was negative on admission. Inpatient psychiatric history: None Outpatient psychiatric history: He had received some outpatient treatment through [facility] in 2020 as an adolescent with a previous diagnosis of major depressive disorder and ADHD. Substance abuse history: none reported, other than occasional alcohol and thc use. Medical history: None Surgical history: Appendectomy Allergies: Penicillin Family psychiatric history: anxiety-mother Legal history: none Medications: none Social History: The patient had reported a history of having been diagnosed with a learning disability and required special education in school. He had ultimately dropped out of school in the ninth grade but completed online schooling and earned his diploma online. He had reported no prior history of sexual physical or emotional abuse. He was raised by his biological mother as his father had 15 years ago. He has a half brother and 2 half sisters. He has been for 2 years and has an 89-kceja-wny child. He lives in [place] with his son and his who is currently . He reports that he is currently unemployed. Hospital Course Hospital Course At the time of discharge, he denies psychosis or lethality.? Mood and anxiety were well managed.? Patient was evaluated and deemed to be absent credible lethality, and had achieved the maximum benefit from an inpatient hospitalization given his lack of participation, so he was discharged. Labs were completed and were found to be within normal limits. He was agreeable to considering outpatient psychotherapy and was started on Lexapro 10 mg daily to target anxiety and depression. Mental Status Exam MSE Comments: Is a casually dressed 19-year-old male average height and appeared healthy weight who appeared in no acute distress. His gait appeared within normal limits. His hygiene was fair. There was no evidence of any abnormal involuntary motor movements, tics, or tremors appreciated. There was evidence of mild psychomotor retardation. His speech was normal in regards to rate and rhythm with a slight impediment appreciated. His mood was described as anxious. His affect appeared slightly restricted in range and mood congruent. His thought process was linear, logical, and goal-directed. His thought content revealed no suicidal or homicidal ideation. There was no evidence of any delusional thinking. He did not appear to be responding to internal stimuli. His attention span appeared to be poor. He was alert and oriented to person, place, time, and situation. His insight appeared fair. His judgment appeared adequate. His impulse control appeared fair. Discharge Data Studies Completed and Pending: Laboratory Results WBC 9.50 10^3/uL (4.5 -13.0) 02/20/25 18:53 RBC 5.32 10^6/uL (3.8 5-5.65) 02/20/25 18:53 Hgb 15.90 g/dL (13.2- 15.6) H 02/20/25 18:53 Hct 45.1 % (37-53) 02/20/25 18:53 MCV 84.8 fl (82-101) 02/20/25 18:53 MCH 29.9 pg (27-33) 02/20/25 18:53 MCHC 35.3 g/dL (30-55) 02/20/25 18:53 RDW 12.1 % (12.1-15.1 ) 02/20/25 18:53 Plt Count 325 10^3/cmm (157 -399) 02/20/25 18:53 MPV 9.7 fL (7.4-10.4) 02/20/25 18:53 Neut % (Auto) 52.2 % 02/20/25 18:53 Lymph % (Auto) 34.3 % 02/20/25 18:53 Beadle % (Auto) 8.1 % 02/20/25 18:53 Eos % (Auto) 4.1 % 02/20/25 18:53 Baso % (Auto) 1.1 % 02/20/25 18:53 Neut # (Auto) 4.96 10^3/uL (1.8 -8.0) 02/20/25 18:53 Lymph # (Auto) 3.3 10^3/uL (1.5- 6.5) 02/20/25 18:53 Beadle # (Auto) 0.8 10^3/uL (0.2- 0.9) 02/20/25 18:53 Eos # (Auto) 0.4 10^3/uL (0.0- 0.8) 02/20/25 18:53 Baso # (Auto) 0.1 10^3/uL (0.0- 0.1) 02/20/25 18:53 Nucleated RBC % (a uto) 0 % 02/20/25 18:53 Nucleated RBCs # 0.0 /100WBC 02/20/25 18:53 Sodium 137 mmol/L (136-1 45) 02/20/25 18:53 Potassium 3.8 mmol/L (3.5-5 .1) 02/20/25 18:53 Chloride 103 mmol/L (98-10 7) 02/20/25 18:53 Carbon Dioxide 24 mmol/L (22-29) 02/20/25 18:53 Anion Gap 13.8 (5-19) 02/20/25 18:53 BUN 10 mg/dL (6-20) 02/20/25 18:53 Creatinine 0.9 mg/dL (0.7-1. 2) 02/20/25 18:53 GFR Calculation 108.7 mL/min (90- 130) 02/20/25 18:53 Glucose 91 mg/dL (65-115) 02/20/25 18:53 Calculated Osmolal ity 283 mOsm/kg (285- 295) L 02/20/25 18:53 Calcium 9.4 mg/dL (8.5-10 .5) 02/20/25 18:53 Total Bilirubin 0.4 mg/dL (0.15-1 .2) 02/20/25 18:53 AST 15 U/L (0-40) 02/20/25 18:53 ALT 27 U/L (0-41) 02/20/25 18:53 Alkaline Phosphata se 99 U/L (40-130) 02/20/25 18:53 Total Protein 7.6 g/dL (6.6-8.7 ) 02/20/25 18:53 Albumin 4.8 g/dL (3.5-5.2 ) 02/20/25 18:53 Globulin 2.8 g/dL (1.3-4.6 ) 02/20/25 18:53 Salicylates < 0.3 mg/dL (3-10 ) L 02/20/25 18:53 Urine Opiates Scre en Negative ng/mL (N egative) 02/20/25 18:47 Acetaminophen < 5.0 ug/mL (10-3 0) L 02/20/25 18:53 Ur Barbiturates Sc reen Negative ng/mL (N egative) 02/20/25 18:47 Ur Phencyclidine S crn Negative ng/mL (N egative) 02/20/25 18:47 Ur Amphetamines Sc reen Negative ng/mL (N egative) 02/20/25 18:47 U Benzodiazepines Scrn Negative ng/mL (N egative) 02/20/25 18:47 Urine Cocaine Scre en Negative ng/mL (N egative) 02/20/25 18:47 U Marijuana (THC) Screen Negative ng/mL (N egative) 02/20/25 18:47 Ethyl Alcohol < 10 mg/dL (0-10) 02/20/25 18:53 Vitals: Last Vital Signs Temp 98.6 F 02/21/25 06:00 Pulse 67 02/21/25 06:00 Resp 17 02/21/25 06:00 BP 112/62 02/21/25 06:00 Pulse Ox 98 02/21/25 06:00 O2 Del Method Room Air 02/21/25 06:00 Discharge Plan Discharge Patient Disposition: Home Condition: Stable Prescriptions: New escitalopram oxalate 10 mg Tablet 10 mg PO DAILY 30 Days Qty: 30 1RF Discharge Order = DC NOW: Discharge Order (Routine); Ordered 02/21/25 Ordered By: Bud Kaiser Referrals: [facility] [Other] - 02/24/25 9:30 am Referral Note: Assessment appointment with Joanne Ghosh. Shamika Jarrett NP [Primary Care Provider, Nurse Practitioner] Sherry Hernandez FNP [Nurse Practitioner, Nurse Practitioner] - 03/01/25 1:00 pm Referral Note: Establish care Discharge Diet: Usual diet Discharge Activity: Resume usual activity Patient Instructions: Opioid Safety, Patient Portal & Isabela Instructions Discharge Attestations NPU Time Spent in Discharge Care*: less than 30 min Specific Discharge Activities: Specific discharge activities: educating patient, discussing with transplant case manager/social workers/dc planners and documenting/other paperwork Status at Discharge: Cognitive status at discharge: cognitively intact , Behavioral status at discharge: cooperative , Coding Level of Care Code Acute Code for [facility] Fwd Diagnoses TAMI (generalized anxiety disorder) F41.1 Major depressive disorder, recurrent, unspecified F33.9 History of ADHD Z86.59
[2025-02-21 14:00] VITALS: BP 140/87; PULSE 60; RESP 18; TEMP 36.3; O2SAT 98
[2025-02-21 16:45] VITALS: BP 125/87; PULSE 60; RESP 18; TEMP 36.3; O2SAT 98
--- OUTSIDE RECORDS SUMMARY | 2025-02-21 17:33 | XMS_ITS | Encounter Summary ---
Author Organization [facility] Address [address] [place] [address] Care Team Providers Care Hospital Insurance Representative Name Role Phone Homero Ordoñez MD Primary Care Provider Encounter Details Date Type Department Care Team (Latest Contact Info) Description 05/08/2006 Outpatient Historical 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
--- OUTSIDE RECORDS SUMMARY | 2025-02-21 17:33 | XMS_ITS | Encounter Summary ---
Author Organization [facility] Address [address] [place] [address] Care Team Providers Care Route Delivery Driver Name Role Phone Homero Ordoñez MD Primary Care Provider Encounter Details Date Type Department Care Team (Latest Contact Info) Description 11/03/2006 Outpatient Historical [facility] Medicine [place] [address] [phone] Purvi Ortiz, [facility] [address] [phone] Rash and Other Nonspecific Skin Eruption (Primary Dx); Acute Pharyngitis; Unspecified Viral Exanthem Social History Tobacco Use Types Packs/Day Years Used Date Smoking Tobacco: Never Assessed Sex and Gender Information Value Date Recorded Sex Assigned at Not on file Legal Sex Male 4:27 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
--- OUTSIDE RECORDS SUMMARY | 2025-02-21 17:33 | XMS_ITS | Encounter Summary ---
Author Organization [facility] Address [address] [place] [address] Care Team Providers Care Ring Stamper Name Role Phone Homero Ordoñez MD Primary Care Provider Encounter Details Date Type Department Care Team (Late st Contact Info) Description 07/22/2007 Outpatient Historical [facility] Medicine [place] [address] [phone] Hung Andrews, NANCY [address] [place] [address] Social History Tobacco Use Types Packs/Day Years Used Date Smoking Tobacco: Never Assessed Sex and Gender Information Value Date Recorded Sex Assigned at Not on file Legal Sex Male 4:27 AM PAPERBACK MACHINE OPERATOR Gender Identity Not on file [...] back up as needed. Hung Andrews RN, MAIL PROCESSOR Jana Mancuso M.D. [facility] Electronically Signed by Hung Andrews RN 08/18/2007 11:40 P, A, 550 Document #: [id number] cc: documented in this encounter Plan of Treatment Not on file documented as of this encounter Visit Diagnoses Not on filedocumented in this encounter Additional Health Concerns Infection Onset Date Last Indicated Resolved Time R/O COVID-19 02/02/2020 02/02/2020 02/04/2020 2:17 AM CDT R/O COVID-19 02/22/2020 02/22/2020 02/24/2020 3:26 AM CDT documented as of this encounter Care Teams Ring Stamper Relationship Specialty Start Date End Date Homero Ordoñez MD PCP - General 06/01/07 documented as of this encounter
--- OUTSIDE RECORDS SUMMARY | 2025-02-21 17:33 | XMS_ITS | Encounter Summary ---
Author Organization [facility] Address [address] [place] [address] Care Team Providers Care Wool Classer Name Role Phone Homero Ordoñez MD Primary Care Provider Encounter Details Date Type Department Care Team (Latest Contact Info) Description 2005 Outpatient Historical [facility] Medicine [place] [address] [phone] Homero Ordoñez MD [address] [place] [phone] Routine Child Health Exam (Primary Dx) Social History Tobacco Use Types Packs/Day Years Used Date Smoking Tobacco: Never Assessed Sex and Gender Information Value Date Recorded Sex Assigned at Not on file Legal Sex Male 4:27 AM MINES SAFETY ENGINEER Gender Identity Not on file Sexual Orientation [...] documented as of this encounter Care Teams Wool Classer Relationship Specialty Start Date End Date Homero Ordoñez MD PCP - General 1/7/08 documented as of this encounter
--- OUTSIDE RECORDS SUMMARY | 2025-02-21 17:33 | XMS_ITS | Encounter Summary ---
Author Organization [facility] Address [address] [place] [address] Care Team Providers Care Blockmason Name Role Phone Homero Ordoñez MD Primary Care Provider [phone] Encounter Details Date Type Department Care Team (Latest Contact Info) Description 02/25/2007 Outpatient Historical [facility] Medicine [address] [phone] Hung Andrews, SENIOR JAVA SOFTWARE ENGINEER [address] [place] [address] Allergic Rhinitis, Cause Unspecified (Primary Dx) Social History Tobacco Use Types Packs/Day Years Used Date Smoking Tobacco: Never Assessed Sex and Gender Information Value Date Recorded Sex Assigned at Not on file Legal Sex Male 4:27 AM DIALYSIS CLINICAL MANAGER Gender Identity Not on file Sexual [...] documented as of this encounter Care Teams Blockmason Relationship Specialty Start Date End Date Homero Ordoñez MD PCP - General 06/01/07 documented as of this encounter
--- OUTSIDE RECORDS SUMMARY | 2025-02-21 17:33 | XMS_ITS | Encounter Summary ---
Author Organization [facility] Address [address] [place] [address] Care Team Providers Care Cold Molding Press Operator Name Role Phone Homero Ordoñez MD Primary Care Provider Encounter Details Date Type Department Care Team (Latest Contact Info) Description 07/15/2006 Outpatient Historical [facility] Medicine [place] [address] [phone] Homero Ordoñez MD [address] [place] [phone] Unspecified Otitis Media (Primary Dx) Social History Tobacco Use Types Packs/Day Years Used Date Smoking Tobacco: Never Assessed Sex and Gender Information Value Date Recorded Sex Assigned at Not on file Legal Sex Male 4:27 AM 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
--- OUTSIDE RECORDS SUMMARY | 2025-02-21 17:33 | XMS_ITS | Clinical Summary ---
Author Organization [facility] Address [address] [facility] Attn: Epic Prelude ADT [place] [address] Care Team Providers Care Garbage Worker Name Role Phone Homero Ordoñez MD Primary Care Provider Allergies No known active allergies Social History Tobacco Use Types Packs/Day Years Used Date Smoking Tobacco: Never Assessed Adolescent Education Answer Date Record ed Getting School Help Needed Not on file 12/26 Sex and Gender Information Value Date Recorded Sex Assigned at Not on file Legal Sex Male 3:28 AM SCRAP PICKER Gender Identity Not on file Sexual Orientation Not on file Plan of Treatment Health Maintenance Due Date Last Done Comments CHLAMYDIA SCREENING (ANNUAL) 11-24 YEARS 2016 HPV VACCINES (1 - Male 3-dose series) 2020 DTAP/TDAP/TD VACCINES (1 - Tdap) 2024 HEPATITIS B VACCINES (1 of 3 - 19+ 3-dose series) 08/24 INFLUENZA VACCINE (#1) 2024 Insurance [facility] [id number] Care Teams Garbage Worker Relationship Specialty Start Date End Date Homero Ordoñez MD [address] [place] [phone] PCP - General 06/01/07
--- OUTSIDE RECORDS SUMMARY | 2025-02-21 17:33 | XMS_ITS | Encounter Summary ---
Author Organization [facility] Address [address] [place] [address] Care Team Providers Care Spray Drier Operator Helper Name Role Phone Homero Ordoñez MD Primary Care Provider Encounter Details Date Type Department Care Team (Late st Contact Info) Description 07/06/2007 Outpatient Historical [facility] Medicine [address] [phone] Hung Andrews NP [address] [place] [address] Social History Tobacco Use Types Packs/Day Years Used Date Smoking Tobacco: Never Assessed Sex and Gender Information Value Date Recorded Sex Assigned at Not on file Legal Sex Male 4:27 AM 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 Followup as needed. Hung Andrews RN, CAPPER MACHINE OPERATOR Jana Mancuso M.D. [facility] Electronically Signed by Hung Andrews RN 07/20/2007 12:26 , P, 570 Document #: [id number] cc: R OPERATOR RAW SALT documented in this encounter Plan of Treatment Not on file documented as of this encounter Visit Diagnoses Not on filedocumented in this encounter Additional Health Concerns Infection Onset Date Last Indicated Resolved Time R/O COVID-19 02/02/2020 02/02/2020 02/04/2020 2:17 AM CDT R/O COVID-19 02/22/2020 02/22/2020 02/24/2020 3:26 AM CDT documented as of this encounter Care Teams Spray Drier Operator Helper Relationship Specialty Start Date End Date Homero Ordoñez MD PCP - General 06/01/07 documented as of this encounter
--- OUTSIDE RECORDS SUMMARY | 2025-02-21 17:33 | XMS_ITS | Clinical Summary ---
Author Organization [facility] Address [address] [place] [address] Care Team Providers Care Salvationist Name Role Phone Homero Ordoñez MD Primary Care Provider Allergies No known active allergies Medications No known medications Active Problems No known active problems Social History Tobacco Use Types Packs/Day Years Used Date Smoking Tobacco: Never Assessed Sex and Gender Information Value Date Recorded Sex Assigned at Not on file Legal Sex Male 4:27 AM SUPERVISOR BRAIDING Gender Identity Not on file Sexual Orientation Not on file Last Filed Vital Signs Vital Sign Reading Time Taken Comments Blood Pressure 118/80 05/12/2012 2:19 PM SUPERVISOR BRAIDING Pulse 88 05/12/2012 2:19 PM SUPERVISOR BRAIDING Temperature 36.4 C (97.6 F) 05/12/2012 2:19 PM SUPERVISOR BRAIDING Respiratory Rate 20 05/12/2012 2:19 PM SUPERVISOR BRAIDING Oxygen Saturation - - Inhaled Oxygen Concentration - - Weight 21.4 kg (47 lb 3.2 oz) 05/12/2012 2:19 PM SUPERVISOR BRAIDING Height 114.3 cm (3' 9 ) 05/12/2012 2:19 PM SUPERVISOR BRAIDING Body Mass Index 16.39 05/12/2012 2:19 PM SUPERVISOR BRAIDING Body Mass Index Percentile 72.77% 05/12/2012 2:1 9 PM SUPERVISOR BRAIDING Growth Chart: CDC (Boys, 2-2 0 Years) Plan of Treatment Health Maintenance Due Date Last Done Comments CHLAMYDIA SCREENING (ANNUAL) 11-24 YEARS 2016 HPV VACCINES (1 - Male 3-dose series) 2020 DTAP/TDAP/TD VACCINES (1 - Tdap) 2024 HEPATITIS B VACCINES (1 of 3 - 19+ 3-dose series) 08/24 INFLUENZA VACCINE (#1) 2024 Insurance [facility] Care Teams Salvationist Relationship Specialty Start Date End Date Homero Ordoñez MD PCP - General 06/01/07
--- OUTSIDE RECORDS SUMMARY | 2025-02-21 17:33 | XMS_ITS | Encounter Summary ---
Author Organization [facility] Address [address] [place] [address] Care Team Providers Care Legal Librarian Name Role Phone Homero Ordoñez MD Primary Care Provider Encounter Details Date Type Department Care Team (Latest Contact Info) Description 2005 Outpatient Historical [facility] Medicine [place] [address] [phone] Homero Ordoñez MD [address] [place] [address] [phone] Routine Child Health Exam (Primary Dx) Social History Tobacco Use Types Packs/Day Years Used Date Smoking Tobacco: Never Assessed Sex and Gender Information Value Date Recorded Sex Assigned at Not on file Legal Sex Male 4:27 AM SOCIOLOGY FACULTY MEMBER Gender Identity Not on file Sexual Orientation [...] documented as of this encounter Care Teams Legal Librarian Relationship Specialty Start Date End Date Homero Ordoñez MD PCP - General 1/7/08 documented as of this encounter
--- OUTSIDE RECORDS SUMMARY | 2025-02-21 17:33 | XMS_ITS | Encounter Summary ---
Author Organization [facility] Address [address] [place] [address] Care Team Providers Care Cafeteria Cashier Name Role Phone Homero Ordoñez MD Primary Care Provider Encounter Details Date Type Department Care Team (Latest Contact Info) Description 11/28/2006 Outpatient Historical [facility] Medicine [address] [phone] Hung Andrews, TECHNICAL COMMUNICATION TEACHER [address] [place] [address] Unspecified Otitis Media (Primary Dx); Acute Upper Respiratory Infections of Unspecified Site; Allergic Rhinitis, Cause Unspecified; Unspecified Constipation Social History Tobacco Use Types Packs/Day Years Used Date Smoking Tobacco: Never Assessed Sex and Gender Information Value Date Recorded Sex Assigned at Not on file Legal Sex Male 4:27 AM GENERAL INTERNAL MEDICINE DOCTOR Gender Identity Not on file Sexual Orientation [...] documented as of this encounter Care Teams Cafeteria Cashier Relationship Specialty Start Date End Date Homero Ordoñez MD PCP - General 06/01/07 documented as of this encounter
== END 2025-02-21 16:53 | disposition home or self-care (01) ==
LOC: ER 19:08 → NP 23:58
PROVIDERS: Admitting Provider Psychiatry & Neurology Psychiatry; Emergency Provider Physician Assistant; PCP Nurse Practitioner Family; Visit Provider Psychiatry & Neurology Psychiatry
DX: R45.851 Suicidal ideations (principal); F41.1 Generalized anxiety disorder; F33.9 Major depressive disorder, recurrent, unspecified; Z86.59 Personal history of other mental and behavioral disorders
CPT/HCPCS: 36415; 80053; 80306; 80307; 85025; 97150; 97165; 99285; G0378; J9999